=== PATIENT | female | born 1995 | race Caucasian/White ===

== ENCOUNTER 2017-03-14 22:59 | Observation (INO) | payer MEDICAID ==
[2017-03-16] MEDS ORDERED: PREN1TAB20 PO (14:18)
== END 2017-03-15 00:07 | disposition home or self-care (01) | DRG 566 ==
LOC: LDRP 22:59
PROVIDERS: ADMIT Obstetrics & Gynecology; ATTEND Obstetrics & Gynecology
DX: O62.9 Abnormality of forces of labor, unspecified (principal); Z3A.39 39 weeks gestation of pregnancy
CPT/HCPCS: 59025; 81002; G0378

== ENCOUNTER 2017-03-15 05:10 | Inpatient (IN) | payer MEDICAID ==
[2017-03-15] VITALS (11 sets, daily range): BP systolic 108–122; BP diastolic 62–78
[~2017-03-15] VITALS: Ht 162.6 cm; Wt 81.6 kg
[2017-03-15] MEDS ORDERED: NALBUPHINE HCL 10 MG/1ml INJECTION IV ONE (05:55)
[2017-03-15] MEDS: LACTATED RINGER'S 1,000 ML IV SCH ×2 (06:45→08:00)
[2017-03-15 08:09] LABS: Basophils # (auto) 0 uL; Basophils % (auto) 0.1 % (0.0-2.0); Eosinophils # (auto) 0 uL; Hematocrit 37.8 % (36.0-46.0); Hemoglobin 12.4 g/dL (12.2-16.2); Lymphocytes # (auto) 1.2 uL; Lymphocytes % (auto) 9.3 % (10.0-50.0); Mean Corpuscular Hemoglobin 28.8 pg (28.0-32.0); Mean Corpuscular Hgb Conc. 32.9 g/dL (32.0-36.0); Mean Corpuscular Volume 87.5 fL (80.0-100.0); Mean Platelet Volume 9.9 fL (7.4-10.4); Monocytes # (auto) 0.4 uL; Monocytes % (auto) 3.1 % (0.0-12.0); Neutrophils # (auto) 11.1 uL; Neutrophils % (auto) 87.5 % (37.0-80.0); Platelet Count (auto) 233 10^3/uL (140-450); Red Cell Distribution Width 14.5 % (11.6-16.0); White Blood Cell 12.6 10^3/uL (4.4-10.8)
[2017-03-15 08:24] LABS: INR 0.93 (0.9-1.15); Partial Thromboplastin Time 28.5 sec (22.64-33.71)
[2017-03-15] MEDS ORDERED: MORPHINE SULF(PF) 0.5MG/ML 10ML VIAL ONE (08:27)
[2017-03-15] MEDS ORDERED: ceFAZolin 1GM VL ONE (08:28)
[2017-03-15] MEDS ORDERED: ePHEDrine SULFATE 50 MG/ML AMP ONE (08:28)
[2017-03-15] MEDS ORDERED: SODIUM CHLORIDE LOCK 20 ML ONE (08:28)
[2017-03-15] MEDS ORDERED: MIDAZOLAM HCL 1MG/1ML-2 ML VIAL ONE (08:28)
[2017-03-15] MEDS ORDERED: fentaNYL CITRATE 100 MCG/2 ML VL ONE (08:28)
[2017-03-15] MEDS ORDERED: OXYTOCIN 10 UNIT/ML 10ML VIAL ONE (08:28)
[2017-03-15 08:36] LABS: Albumin 2.7 g/dL (3.4-5.0); BUN/Creatinine Ratio 17.3; Bilirubin, Total 0.5 mg/dL (0.2-1.0); Calcium 8.7 mg/dL (8.5-10.1); Potassium 3.6 mmol/L (3.5-5.1); Total Protein 6.7 g/dL (6.4-8.2)
[2017-03-15] MEDS ORDERED: TETRACAINE 1% INJ 2 ML VIAL IJ ONE (08:57)
[2017-03-15] MEDS ORDERED: ONDANSETRON HCL 4 MG/2 ML VIAL IV PRN (10:45)
[2017-03-15] MEDS ORDERED: MORPHINE SULF INJ 2 MG/ML SYRINGE 1ML IV PRN (10:45)
[2017-03-15] MEDS ORDERED: HYDROmorphone HCL 2 MG/ML VL IV PRN ×2 (11:00→12:00)
[2017-03-15] MEDS ORDERED: KETOROLAC TROMETH 30 MG/ML 1ML VIAL IV ONE (11:00)
[2017-03-15] MEDS ORDERED: METOCLOPRAMIDE HCL 5MG/ml INJ 2ml VIAL IV ONE (11:00)
[2017-03-15] MEDS ORDERED: ONDANSETRON HCL 4 MG/2 ML VIAL ONE (11:33)
[2017-03-15] MEDS ORDERED: KETOROLAC TROMETH 30 MG/ML 1ML VIAL IV PRN (12:00)
[2017-03-15] MEDS ORDERED: LACT. RINGERS/OXYTOCIN 20UNITS 1,000 ML IV SCH (12:00)
[2017-03-15 12:23] LABS: Urine Bilirubin Negative (Negative); Urine Blood Negative /uL (Negative); Urine Color Yellow (Yellow); Urine Glucose Normal (Normal); Urine Nitrite Negative (Negative); Urine RBC <1 /hpf (0 - 4); Urine Squamous Epithelial Cell FEW /hpf (<5); Urine Urobilinogen Normal (Negative)
[2017-03-15 12:37] LABS: Urine Ketone 2+ (Negative)
[2017-03-15] MEDS ORDERED: ONDANSETRON HCL 4 MG/2 ML VIAL IV ONE (12:45)
[2017-03-15] MEDS: ceFAZolin 1GM/50ML D5W 50 ML IV SCH ×2 (14:00→22:00)
[2017-03-15 19:33] LABS: Basophils # (auto) 0 uL; Basophils % (auto) 0.2 % (0.0-2.0); Eosinophils # (auto) 0 uL; Eosinophils % (auto) 0.1 % (0.0-7.0); Hematocrit 35.8 % (36.0-46.0); Hemoglobin 11.7 g/dL (12.2-16.2); Lymphocytes % (auto) 6.9 % (10.0-50.0); Mean Corpuscular Hemoglobin 28.8 pg (28.0-32.0); Mean Corpuscular Hgb Conc. 32.6 g/dL (32.0-36.0); Mean Corpuscular Volume 88.3 fL (80.0-100.0); Mean Platelet Volume 9.7 fL (7.4-10.4); Monocytes # (auto) 0.7 uL; Monocytes % (auto) 4.7 % (0.0-12.0); Neutrophils # (auto) 12.9 uL; Neutrophils % (auto) 88.1 % (37.0-80.0); Platelet Count (auto) 224 10^3/uL (140-450); Red Cell Distribution Width 14.7 % (11.6-16.0); White Blood Cell 14.6 10^3/uL (4.4-10.8)
[2017-03-15] MEDS ORDERED: PROMETHAZINE 12.5 MG IV PRN (20:45)
[2017-03-16] VITALS (10 sets, daily range): BP systolic 105–133; BP diastolic 49–79
[2017-03-16] MEDS ORDERED: PROCHLORPERAZINE EDISYLATE 5 MG/ML 2ML VIAL IV PRN (05:15)
[2017-03-16] MEDS: ceFAZolin 1GM/50ML D5W 50 ML IV SCH (05:59)
[2017-03-16 06:30] LABS: Basophils # (auto) 0 uL; Basophils % (auto) 0.4 % (0.0-2.0); Eosinophils # (auto) 0.1 uL; Eosinophils % (auto) 0.9 % (0.0-7.0); Hematocrit 28.7 % (36.0-46.0); Hemoglobin 9.6 g/dL (12.2-16.2); Lymphocytes # (auto) 1.5 uL; Lymphocytes % (auto) 16.1 % (10.0-50.0); Mean Corpuscular Hemoglobin 29.1 pg (28.0-32.0); Mean Corpuscular Hgb Conc. 33.5 g/dL (32.0-36.0); Mean Corpuscular Volume 87.1 fL (80.0-100.0); Mean Platelet Volume 9.5 fL (7.4-10.4); Monocytes # (auto) 0.8 uL; Monocytes % (auto) 8.2 % (0.0-12.0); Neutrophils # (auto) 7.1 uL; Neutrophils % (auto) 74.4 % (37.0-80.0); Platelet Count (auto) 193 10^3/uL (140-450); Red Cell Distribution Width 14.5 % (11.6-16.0); White Blood Cell 9.6 10^3/uL (4.4-10.8)
[2017-03-16] MEDS ORDERED: HYDROcodone-ACET 10/325MG TAB PO PRN (10:15)
[2017-03-16] MEDS ORDERED: BISACODYL 10 MG RECT SUPP PR PRN (10:15)
[2017-03-16] MEDS: IBUPROFEN 800 MG TAB PO PRN (10:31)
[2017-03-16] MEDS: SIMETHICONE 80 MG CHEWABLE TABLET PO SCH ×3 (12:28→21:55)
[2017-03-16] MEDS ORDERED: PREN1TAB20 PO (14:18)
[2017-03-16] MEDS: FERROUS SULFATE 325 MG TAB PO SCH (21:55)
[2017-03-16] MEDS: DOCUSATE SOD 100 MG CAP PO SCH (21:55)
[2017-03-17] MEDS: IBUPROFEN 800 MG TAB PO PRN ×3 (01:38→20:58)
[2017-03-17 04:00] VITALS: BP 107/68
[2017-03-17 08:04] VITALS: BP 115/76
[2017-03-17] MEDS: DOCUSATE CALCIUM 240 MG CAP PO SCH (09:38)
[2017-03-17] MEDS: FERROUS SULFATE 325 MG TAB PO SCH ×2 (09:38→22:30)
[2017-03-17] MEDS: DOCUSATE SOD 100 MG CAP PO SCH ×2 (09:38→22:30)
[2017-03-17] MEDS: SIMETHICONE 80 MG CHEWABLE TABLET PO SCH ×3 (12:00→22:30)
[2017-03-17 12:14] VITALS: BP 123/74
[2017-03-17] MEDS ORDERED: SODIUM CHLOR 0.9% PF (SALINE LOCK) 10ML VIAL IV SCH (14:00)
[2017-03-17 16:07] VITALS: BP 124/75
[2017-03-17 19:30] VITALS: BP 124/82
[2017-03-17 23:30] VITALS: BP 119/76
[2017-03-18 03:30] VITALS: BP 119/74
[2017-03-18] MEDS: SIMETHICONE 80 MG CHEWABLE TABLET PO SCH (05:53)
[2017-03-18 08:24] VITALS: BP 123/83
[2017-03-18] MEDS: DOCUSATE CALCIUM 240 MG CAP PO SCH (10:12)
[2017-03-18] MEDS: FERROUS SULFATE 325 MG TAB PO SCH (10:12)
[2017-03-18] MEDS: DOCUSATE SOD 100 MG CAP PO SCH (10:12)
== END 2017-03-18 10:40 | disposition home or self-care (01) | DRG 540 ==
LOC: LDRP 05:10 → OBSVTOIN 05:10 → LDRP 10:28 → OBSVTOIN 03-18 13:03 → INTOOBSV 03-18 13:03
PROVIDERS: ADMIT Obstetrics & Gynecology; ATTEND Obstetrics & Gynecology
PROC: 10D00Z1 Extraction of Products of Conception, Low, Open Approach (ICD-10-PCS; principal; 2017-03-15 09:52)
DX: O76 Abnormality in fetal heart rate and rhythm complicating labor and delivery (principal); Z37.0 Single live birth; Z3A.40 40 weeks gestation of pregnancy
CPT/HCPCS: 36415; 59025; 80053; 81001; 81002; 85025; 85610; 85730; 86850; 86900; 86901; G0378; J0690; J1885; J2250; J2405; J2590